=== PATIENT | male | born 1980 ===

== ENCOUNTER 2017-01-21 14:39 | Emergency (ER) | payer SELFPAY ==
[2017-01-21 14:40] VITALS: BMI 32.5
[2017-01-21 14:47] VITALS: BP 136/86; PULSE 77; RESP 18; TEMP 97.6; O2SAT 98
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
== END 2017-01-21 15:14 | disposition home or self-care (01) ==
LOC: C.ER 14:39
DX: Z77.21 Contact with and (suspected) exposure to potentially hazardous body fluids (principal)

== ENCOUNTER 2017-04-19 09:33 | Emergency (ER) | payer OTHER ==
[2017-04-19 09:41] VITALS: BMI 29.1
[2017-04-19 09:42] VITALS: BP 139/92; PULSE 94; TEMP 99.3; O2SAT 96
--- NOTE | 2017-04-19 10:10 | C.PDOC ---
History Of Present Illness 37 y/o male presenting with fever, body aches, sore throat, and cough for 2 days. Cough is productive of yellow phlegm. Denies any nausea, vomiting, or diarrhea. No sick contacts. HPI: Influenza Time Seen by Provider: 04/19/17 09:57 Chief Complaint: Flu-like Symptoms Chief Complaint (Provider): Flu-like Symptoms History Per: Patient Exam Limitations: no limitations Onset/Duration Of Symptoms: Days (x2) Symptoms include: fever, bodyaches, sore throat, cough Sick Contacts (Context): None Risk factors for flu complications: No: adult > 65 years, child < 5 years, chronic lung disease, heart disease, metabolic disease Past Medical History Reviewed: Historical Data, Nursing Documentation, Vital Signs Vital Signs: Last Vital Signs Temp 99.3 F 04/19/17 09:41 Pulse 94 H 04/19/17 09:41 Resp 20 04/19/17 09:41 BP 139/92 H 04/19/17 09:41 Pulse Ox 96 04/19/17 09:41 - Medical History PMH: No Chronic Diseases Surgical History: No Surg Hx Family History: States: No Known Family Hx - Social History Hx Alcohol Use: No Hx Substance Use: No - Immunization History Hx Tetanus Toxoid Vaccination: No Review Of Systems Constitutional: Positive for: Fever, Other (Body aches) ENT: Positive for: Throat Pain Respiratory: Positive for: Cough, Sputum Physical Exam - Physical Exam Appears: Non-toxic, No Acute Distress Skin: Normal Color, Warm, Dry Head: Atraumatic, Normacephalic Eye(s): bilateral: Normal Inspection, PERRL, EOMI Nose: Normal Oral Mucosa: Moist Throat: Erythema (tonsillar), No Exudate, No Other (tonsillar hypertrophy) Neck: Normal ROM, Supple Chest: Symmetrical Cardiovascular: Rhythm Regular Respiratory: Normal Breath Sounds, No Accessory Muscle Use, No Rhonchi, No Wheezing Neurological/Psych: Oriented x3, Normal Speech Medical Decision Making Medical Decision Making: Impression: Flu-like syndrome Patient discharged with Tamiflu, Naprosyn and Tessalon Perles. Instructed to follow up with PMD in 1-2 days. - ECG O2 Sat by Pulse Oximetry: 96 (RA) Pulse Ox Interpretation: Normal Disposition Counseled Patient/Family Regarding: Diagnosis, Need For Followup, Rx Given - Disposition Referrals: [facility] [Outside] Disposition: HOME/ ROUTINE Disposition Time: 10:08 Condition: STABLE Additional Instructions: follow up with your doctor in 2 days call to make an appointment take medications as prescribed return to ER if symptoms worsens or progress Prescriptions: Benzonatate [Tessalon Perles] 100 mg PO BID PRN #14 tab PRN Reason: Cough Naproxen [Naprosyn] 500 mg PO BID PRN #16 tab PRN Reason: Pain, Moderate (4-7) Oseltamivir Phosphate [Tamiflu] 75 mg PO BID #10 capsule Instructions: Flu Forms: Gen Discharge Inst Guinean, [employer] (Guinean), Work Excuse Print Language: HEBREW - POA Present On Arrival: None - Clinical Impression Clinical Impression: Influenza-like illness - Scribe Statement The provider has reviewed the documentation as recorded by the Scribe (Trista Roberts) Provider Attestation: All medical record entries made by the Scribe were at my direction and personally dictated by me. I have reviewed the chart and agree that the record accurately reflects my personal performance of the history, physical exam, medical decision making, and the department course for this patient. I have also personally directed, reviewed, and agree with the discharge instructions and disposition.
[2017-04-19 10:46] VITALS: RESP 18
== END 2017-04-19 10:16 | disposition home or self-care (01) ==
LOC: C.ER 09:33
DX: J11.1 Influenza due to unidentified influenza virus with other respiratory manifestations (principal)